=== PATIENT | female | born 2005 | race Caucasian/White ===

== ENCOUNTER 2024-11-12 01:49 | Emergency (ER) | payer OTHER | END 2024-11-12 04:19 | disposition home or self-care (01) | LOC: FB.ED 01:49 | DX: S00.83XA Contusion of other part of head, initial encounter (principal); S00.33XA Contusion of nose, initial encounter; F17.200 Nicotine dependence, unspecified, uncomplicated; Z88.0 Allergy status to penicillin; Z88.1 Allergy status to other antibiotic agents; V89.2XXA Person injured in unspecified motor-vehicle accident, traffic, initial encounter | CPT/HCPCS: 70450; 72125; 99284 ==

== ENCOUNTER 2025-04-09 23:18 | Emergency (ER) | payer OTHER ==
[2025-04-09] MEDS: Ondansetron 4 MG/2 ML SDV IVPUSH ONE (23:34)
[2025-04-09 23:44] LABS: BASOPHILS ABSOLUTE AUTO 0.0 x10-3/uL (0.0-0.1); BASOPHILS PERCENT AUTO 0.3 % (0.2-1.5); EOSINOPHILS ABSOLUTE AUTO 0.1 x10-3/uL (0.0-0.8); EOSINOPHILS PERCENT AUTO 0.9 % (0.6-8.1); LYMPHOCYTES ABSOLUTE AUTO 4.1 x10-3/uL (1.0-4.4); LYMPHOCYTES PERCENT AUTO 37.9 % (18.4-52.1); MEAN PLATELET VOLUME 8.7 fL (7.1-12.4); MONOCYTES ABSOLUTE AUTO 0.5 x10-3/uL (0.3-1.0); MONOCYTES PERCENT AUTO 4.2 % (4.4-15.7); NEUTROPHILS ABSOLUTE AUTO 6.2 x10-3/uL (1.5-6.3); NEUTROPHILS PERCENT AUTO 56.7 % (30.8-76.2); PLATELET COUNT,PLT 252 x10(3)uL (151-488); RED BLOOD CELL COUNT 4.03 x10(6)uL (3.60-5.20); RED CELL DISTRIBUTION WIDTH 13.5 % (12.3-16.5); WHITE BLOOD CELL COUNT,WBC 10.9 x10-3/uL (3.0-10.3)
[2025-04-09 23:47] LABS: BLOOD UREA NITROGEN,BUN 9 mg/dL (7-18); CARBON DIOXIDE,CO2 23 mmol/L (21-32); CHLORIDE,CL 104 mmol/L (100-110); CREATININE 0.5 mg/dL (0.55-1.02); EST CRCL DRUG DOSING (CG) 153.69 mL/min; ESTIMATED GFR 137 mL/min (>60); GLUCOSE RANDOM 116 mg/dL (80-116); POTASSIUM,K 3.1 mmol/L (3.5-5.3); SODIUM,NA 140 mmol/L (135-145)
[2025-04-09 23:53] LABS: A/G RATIO 1.4; ALANINE AMINOTRANSFERASE,ALT 21 U/L (12-36); ASPARTATE AMNIOTRANSFERASE,AST 18 IU/L (5-25); BILIRUBIN TOTAL 0.3 mg/dL (0.1-1.3); PROTEIN TOTAL,TP 7.3 g/dL (6.0-8.0)
[2025-04-10] MEDS: Magnesium Sulfate 2 GM/50 mL 2 GM in Premix Bag 1 BAG IV ONE (00:27)
[2025-04-10] MEDS: Potassium Chloride 20 MEQ Tab.ER PO ONE (02:25)
[2025-04-10] MEDS: Ondansetron 4 MG/2 ML SDV IVPUSH ONE (03:05)
[2025-04-10] MEDS: Potassium Chloride 20 MEQ Tab.ER ONE (03:09)
== END 2025-04-10 06:56 | disposition home or self-care (01) ==
LOC: SUPCPDRO 23:18 → FB.ED 23:18
DX: F10.129 Alcohol abuse with intoxication, unspecified (principal); F17.200 Nicotine dependence, unspecified, uncomplicated; Z88.0 Allergy status to penicillin
CPT/HCPCS: 36415; 80053; 80307; 83735; 85025; 96361; 96365; 96366; 96375; 96376; 99284; A9270; J2405; J3475; J7030